=== PATIENT | female | born 1945 | race Hispanic/Latino ===

== ENCOUNTER 2024-10-06 22:24 | Emergency (ER) | payer OTHER, SELFPAY ==
--- NOTE | ~2024-10-06 | XR_ITS ---
EXAM: XR shoulder RT min 2V DATE: 10/06/2024 22:55 HISTORY: shoulder pain. FALL X 2 WKS AGO . COMPARISON: None available. FINDINGS: Osteopenia. No fracture or dislocation. No lytic or blastic lesion. 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 Superior humeral head migration as can be seen with rotator cuff patho logy. No erosion or periosteal change. Soft tissues within normal limits. IMPRESSION: No acute osseous finding in the right shoulder. Reviewed, dictated and finalized at location K. OLOGIST
[2024-10-06 22:26] VITALS: BP 199/91; PULSE 98; RESP 16; TEMP 36.2; O2SAT 98
--- NOTE | 2024-10-06 22:45 | ED.GENADULT ---
HPI - General Adult General Chief complaint: Extremity Injury, Upper Stated complaint: RIGHT SHOULDER PAIN S/P FALL 2 DAYS AGO Time Seen by Provider: 10/06/24 22:26 History of Present Illness HPI narrative: 79-year-old female with dementia presenting with right shoulder pain. Per the [facility] she had a fall 2 days ago had negative x-rays. Patient states that she shoulder throwing heavy object and she pulled a muscle. She has dementia. She says that she had negative x-rays that time but she is still having pain in shoulder. No other complaints. Related Data Allergies Allergy/AdvReac Type Severity Reaction Status Date / Time chlorpromazine (From Allergy Unknown Verified 10/06/24 22:43 Thorazine) codeine Allergy Unknown Verified 10/06/24 22:43 Influenza Virus Vaccines Allergy Unknown Verified 10/06/24 22:43 tuberculin, purified protein Allergy Unknown Verified 10/06/24 22:43 deriva Exam Narrative: APPEARANCE: No apparent distress. Head: atraumatic. EYES: EOMI, NOSE: Atraumatic NECK: Trachea midline RESPIRATORY: No increased rate of breathing CARDIOVASCULAR: RRR, ABDOMINAL: Non-distended MUSCULOSKELETAl: Focal exam of the right upper extremity revealed no obvious traumatic injuries. No focal tenderness. Clinical Systems Analyst strength is intact.Pulses are strong cap refills less than 2 seconds. NEURO: Alert. Moving 4/4 extremities SKIN:: Warm, dry. Normal color PSYCHIATRIC: Normal affect Course Vital Signs Vital signs: Vital Signs Temperature 97.2 F L 10/06/24 22:26 Pulse Rate 98 10/06/24 22:26 Respiratory Rate 16 10/06/24 22:26 Blood Pressure 199/91 H 10/06/24 22:26 Pulse Oximetry 98 10/06/24 22:26 Oxygen Delivery Room Air 10/06/24 22:26 Temperature 97.2 F L 10/06/24 22:26 Pulse Rate 98 10/06/24 22:26 Respiratory Rate 16 10/06/24 22:26 Blood Pressure 199/91 H 10/06/24 22:26 Pulse Oximetry 98 10/06/24 22:26 Oxygen Delivery Room Air 10/06/24 22:26 Medical Decision Making MDM Narrative Medical decision making narrative: -Course: 79-year-old female presenting with shoulder pain. X-rays negative. Patient given pain control and discharged primary care follow-up. Vital Signs Vital Signs: Vital Signs Temperature 97.2 F L 10/06/24 22:26 Pulse Rate 98 10/06/24 22:26 Respiratory Rate 16 10/06/24 22:26 Blood Pressure 199/91 H 10/06/24 22:26 Pulse Oximetry 98 10/06/24 22:26 Oxygen Delivery Room Air 10/06/24 22:26 Temperature 97.2 F L 10/06/24 22:26 Pulse Rate 98 10/06/24 22:26 Respiratory Rate 16 10/06/24 22:26 Blood Pressure 199/91 H 10/06/24 22:26 Pulse Oximetry 98 10/06/24 22:26 Oxygen Delivery Room Air 10/06/24 22:26 Discharge Plan Discharge Clinical Impression: Acute shoulder pain Patient Disposition: Home, Self-Care Condition: Stable Instructions: Antibiotic Form, Shoulder Pain (ED) Additional Instructions: Use Tylenol for shoulder pain. Return if you develop weakness in her arm her more pain. Patient Language: Kinyarwanda Prescriptions: New acetaminophen 500 mg tablet 1,000 mg PO TID PRN (Reason: moraima) 7 Days Qty: 42 0RF
--- OUTSIDE RECORDS SUMMARY | 2024-10-06 22:52 | XMS_ITS | Clinical Summary ---
Author Organization [facility] Address [address] [place] [id number] Care Team Providers Care Scrap Piler Name Role Phone mEmett Lopez MD Primary Care Provider [phone] No, Physician Unavailable Allergies Active Allergy Reactions Criticality Noted Date Comments Codeine Hives,Dizziness Medium 07/30/2019 Influenza Virus Vaccines Redness Low 07/30/2019 Chlorpromazine Unknown 07/30/2019 Tuberculin Ppd Unknown 07/30/2019 Medications aspirin 81 mg enteric coated tablet Take 81 mg by mouth daily Active acetaminophen ER (TYLENOL) 650 mg 8 hr tablet Take 650 mg by mouth every 8 (eight) hours as needed Active atorvastatin (LIPITOR) 10 mg tablet Take 10 mg by mouth daily Active baclofen (LIORESAL) 10 mg tablet Take 10 mg by mouth nightly Active benzonatate (TESSALON) 100 mg capsule Take 100 mg by mouth 3 (three) times a day as needed Active famotidine (PEPCID) 40 mg tablet Take 40 mg by mouth daily Active gabapentin (NEURONTIN) 300 mg capsule Take 300 mg by mouth 2 (two) times a day Active losartan (COZAAR) 50 mg tablet Take 50 mg by mouth daily Active metoprolol XL (TOPROL-XL) 50 mg 24 hr tablet Take 50 mg by mouth daily Active traMADol (ULTRAM) 50 mg tablet Take 50 mg by mouth 3 (three) times a day 07/07/2019 Active dextran 70-hypromellose 0.1-0.3 % drops 2 drops 4 (four) times a day as needed Active HYDROcodone-jena taminophen (NORCO) 5-325 mg per tabletIndicatio ns:Pain Take 1 tablet by mouth every 6 (six) hours as needed for pain 14 tablet 09/26/2021 Active Active Problems Problem Noted Date Diagnosed Date Old NC (myocardial infarction) 07/30/2019 Anemia 07/30/2019 COPD (chronic obstructive pulmonary disease) 06/2019 Hyperlipidemia 07/28/2019 Essential hypertension 07/28/2019 GERD (gastroesophageal reflux disease) 9 Other chest pain 07/28/2019 Medical History Medical History Date Comments Chest pain Essential hypertension GERD (gastroesophageal reflux disease) Hyperlipidemia Social History Tobacco Use Types Packs/Day Years Used Date Smoking Tobacco: Every Day Cigarettes 0.1 65.2 Started: 07/30/1959 Smokeless Tobacco: Never Tobacco Cessation:Ready to Q uit: No Alcohol Use Standard Drinks/Week Comments Never 0 (1 standard drink = 0.6 oz pur e alcohol) AUDIT-C Answer Date Recorded Frequency of Alcohol Consumption Never 07/30/2019 Average Number of Drinks Not on file 019 Frequency of Binge Drinking Not on file 07/20 Comments No Sex and Gender Information Value Date Recorded Sex Assigned at Not on file Legal Sex Female 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 Gender Identity Not on file Sexual Orientation Not on file Obstetrics History Last Filed Vital Signs Vital Sign Reading Time Taken Comments Blood Pressure 139/73 09/26/2021 9:40 AM WEB MARKETING ANALYST Pulse 88 09/26/2021 9:40 AM WEB MARKETING ANALYST Temperature 36.3 C (97.4 F) 09/26/2021 4:51 AM WEB MARKETING ANALYST Respiratory Rate 18 09/26/2021 9:40 AM WEB MARKETING ANALYST Oxygen Saturation 95% 09/26/2021 9:40 AM WEB MARKETING ANALYST Inhaled Oxygen Concentration - - Weight 68 kg (149 lb 14.6 oz) 09/26/2021 4:51 AM WEB MARKETING ANALYST Height 147.3 cm (4' 10 ) 07/30/2019 9:21 AM WEB MARKETING ANALYST Body Mass Index 31.33 07/30/2019 9:21 AM WEB MARKETING ANALYST Plan of Treatment Not on file Procedures Procedure Name Priority Date/Time Associated Diagnosis Comments DEXA AXIAL SKELETON BONE DENSITY 1 OR MORE SITES Routine 12/13/2012 2:36 PM CDT from Last 3 Months or Most Recently Relevant to Health Maintenance Results * Dexa Axial Skeleton Bone Density 1 or 2 Site (12/13/2012 2:36 PM CDT) Anatomical Region Laterality Modality Body N/A Radiographic Alena ging 12/13/2012 2:36 PM CDT Impressions 12/13/2012 3:26 PM CDT 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 THIS IS AN ELECTRONICALLY VERIFIED REPORT 12/13/2012 3:17 PM: Ashley Lopez M.D. Ashley Lopez M.D. KL:delmy 03:17 PM 03:17 PM [EOD] Narrative 12/13/2012 3:26 PM CDT EXAMINATION: Bone Density Study (DEXA) HISTORY: Post menopausal woman with clinical concern for low bone mineral density. COMPARISON: No prior DEXA available. TECHNIQUE: Dual-energy X-ray absorptiometry of the lumbar spine and total left hip were performed. FINDINGS: Lumbar spine (from L1 through L4): The bone mineral density is 0.841 gm / cm sq. The T score is -1.9. The percentage of young normal mean is 80%. Total Left Hip: The bone mineral density is 0.549 gm / cm sq. The T score is -3.2. The percentage of young normal mean is 58%. Procedure Note Provider, MD Giselle - 01/04/2021 EXAMINATION: Bone Density Study (DEXA) HISTORY: Post menopausal woman with clinical concern for low bone mineral density. COMPARISON: No prior DEXA available. TECHNIQUE: Dual-energy X-ray absorptiometry of the lumbar spine and totalleft hip were performed. FINDINGS: Lumbar spine (from L1 through L4): The bone mineral density is 0.841 gm / cm sq. The T score is -1.9. The percentage of young normal mean is 80%. Total Left Hip: The bone mineral density is 0.549 gm / cm sq. The T score is -3.2. The percentage of young normal mean is 58%. 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 THIS IS AN ELECTRONICALLY VERIFIED REPORT 12/13/2012 3:17 PM: Ashley Lopez M.D. Ashley Lopez M.D. KL:delmy 03:17 PM 03:17 PM [EOD] Graeme De Jesus MD IMG DXA PROCEDURES Final Resu lt from Last 3 Months or Most Recently Relevant to Health Maintenance Insurance [facility] Advance Directives For more information, please contact: [phone] Documents on File Type Date Recorded Patient Transfer Engineer Expl anation ADVANCE DIRECTIVE 05/17/2012 12:00 AM DNR Care Teams Scrap Piler Relationship Specialty Start Date End Date Emmett Lopez MD [address] [place] [address] PCP - General Internal Medicine 05/25/20 No, Physician 05/25/20
--- OUTSIDE RECORDS SUMMARY | 2024-10-06 22:52 | XMS_ITS | Referral Summary ---
Author Organization [facility] Address [address] [place] [id number] Care Team Providers Care Mobile Nurse Name Role Phone Emmett Lopez MD Primary Care Provider [phone] No, Physician Unavailable Allergies Active Allergy Reactions [...] Problems Problem Noted Date Diagnosed Date Old NM (myocardial infarction) 07/30/2019 Anemia 07/30/2019 COPD (chronic obstructive pulmonary disease) 06/2019 Hyperlipidemia 07/28/2019 Essential hypertension 07/28/2019 GERD (gastroesophageal reflux disease) 9 Other chest pain 07/28/2019 Social History Tobacco Use Types Packs/Day Years [...] on file Legal Sex Female 12:25 AM POT HOLDER BINDER Gender Identity Not on file Sexual Orientation Not on file Last Filed Vital Signs Vital Sign Reading Time Taken Comments Blood Pressure 139/73 09/26/2021 9:40 AM POT HOLDER BINDER Pulse 88 09/26/2021 9:40 AM POT HOLDER BINDER Temperature 36.3 C (97.4 F) 09/26/2021 4:51 AM POT HOLDER BINDER Respiratory Rate 18 09/26/2021 9:40 AM POT HOLDER BINDER Oxygen Saturation 95% 09/26/2021 9:40 AM POT HOLDER BINDER Inhaled Oxygen Concentration - - Weight 68 kg (149 lb 14.6 oz) 09/26/2021 4:51 AM POT HOLDER BINDER Height 147.3 cm (4' 10 ) 07/30/2019 9:21 AM POT HOLDER BINDER Body Mass Index 31.33 07/30/2019 9:21 AM POT HOLDER BINDER Plan of Treatment Not on file Procedures [...] Most Recently Relevant to Health Maintenance Insurance Advance Directives For more information, please contact: [phone] Documents on File Type Date Recorded Patient Automotive Shop Foreman Expl anation ADVANCE DIRECTIVE 05/17/2012 12:00 AM DNR Care Teams Mobile Nurse Relationship Specialty Start Date End Date Emmett Lopez MD [address] [place] [address] PCP - General Internal Medicine 05/25/20 No, Physician 05/25/20
[2024-10-06] MEDS: KETOROLAC 30 MG/ML VIAL (*BKC) IM (23:04)
[2024-10-06] MEDS: methocarbamoL 750 MG TABLET PO (23:04)
[2024-10-07 01:12] VITALS: BP 176/86; PULSE 92; RESP 15; O2SAT 98
== END 2024-10-07 01:13 | disposition home or self-care (01) ==
PROVIDERS: Emergency Provider Emergency Medicine
DX: M25.511 Pain in right shoulder (principal); F03.90 Unspecified dementia, unspecified severity, without behavioral disturbance, psychotic disturbance, mood disturbance, and anxiety
CPT/HCPCS: 73030; 96372; 99283; A9270; J1885